=== PATIENT | male | born 1975 | race Two or more races ===

== ENCOUNTER 2018-11-20 20:15 | Emergency (ER) | payer MEDICAID ==
[~2018-11-20] VITALS: Ht 182.9 cm; Wt 132.0 kg
[2018-11-20] MEDS ORDERED: TETRACAINE 0.5% OPHTH DROPS 4ML OP ONE (23:45)
[2018-11-20] MEDS ORDERED: FLUORESCEIN SODIUM 1MG/STRIP OP ONE (23:45)
[2018-11-21 01:25] VITALS: BP 145/78
== END 2018-11-21 01:25 | disposition home or self-care (01) ==
LOC: ER 20:15
DX: H10.9 Unspecified conjunctivitis (principal); E11.9 Type 2 diabetes mellitus without complications
CPT/HCPCS: 99283